=== PATIENT | male | born 1995 | race Caucasian/White ===

== ENCOUNTER 2018-01-29 08:53 | Emergency (ER) | payer OTHER, BC ==
[~2018-01-29] VITALS: Ht 172.7 cm; Wt 77.3 kg
[2018-01-29 09:08] VITALS: TEMP 98.4
[2018-01-29 10:43] VITALS: BP 133/63; PULSE 60
== END 2018-01-29 10:50 | disposition home or self-care (01) ==
LOC: COL.ER 08:53
DX: R20.2 Paresthesia of skin (principal); Z77.098 Contact with and (suspected) exposure to other hazardous, chiefly nonmedicinal, chemicals